=== PATIENT | male | born 1990 | race Caucasian/White ===

== ENCOUNTER 2018-05-11 19:22 | Emergency (ER) | payer BC ==
[~2018-05-11] VITALS: Ht 165.1 cm; Wt 187.7 kg
[2018-05-11 19:24] VITALS: BP 153/71; PULSE 100; RESP 20; Ht 165.1 cm; Wt 187.7 kg
[2018-05-11] MEDS ORDERED: ALBU18HF INHALATION (19:58)
[2018-05-11] MEDS ORDERED: AZIT250T PO (19:58)
[2018-05-11] MEDS ORDERED: BENZ-6 PO (19:58)
--- NOTE | 2018-05-11 22:27 | ERD ---
ER Documentation Chief Complaint Chief Complaint COUGH HPI 28-year-old male patient with a past medical history of hypertension presents to the ED complaining of cough that started 1 week ago. Reports that he has some nasal congestion. Reports that he is tried txnn-ekl-[id number] medication, NyQuil, Mucinex without any relief of his symptoms. Denies any fever, chills, nausea, vomiting, diarrhea, neck stiffness, chest pain, shortness of breath, wheezing. ROS All systems reviewed and are negative except as per history of present illness. Medications Home Meds Active Scripts Albuterol Sulfate* (Ventolin HFA*) 18 Gm Hfa.aer.ad, 2 PUFF INHALATION Q4H, #1 INHALER Prov:LALA EDMONDSON PA-C 05/11/18 Azithromycin* (Zithromax*) 250 Mg Tablet, 250 MG PO .ZPACK DIRECTED, #6 TAB TAKE 500 MG (2 TABS) THE FIRST DAY THEN 250 MG (1 TAB) DAYS 2-5 Prov:LALA EDMONDSON PA-C 05/11/18 Benzonatate* (Tessalon Perle*) 100 Mg Capsule, 100 MG PO Q8H PRN for COUGH, #20 CAP Prov:LALA EDMONDSON PA-C 05/11/18 Allergies Allergies: Coded Allergies: No Known Allergy (Unverified , 05/11/18) PMhx/Soc Medical and Surgical Hx: pt denies Medical Hx, pt denies Surgical Hx Hx Alcohol Use: No Hx Substance Use: No Hx Tobacco Use: No Smoking Status: Never smoker FmHx Family History: diabetes (Father); No coronary disease Physical Exam Vitals Vital Signs Date Temp Pulse Resp B/P (MAP) Pulse Ox O2 O2 Flow FiO2 Time Delivery Rate 05/11/18 99.4 100 20 153/71 96 19:24 (98) Physical Exam Const: Nga-caa-bsjwjnjfl, well-nourished. In no acute distress. Head: Atraumatic, normocephalic Eyes: Normal Conjunctiva without injection. No purulent discharge. PERRL. EOMI ENT: Normal external ear. Ear canal without erythema. Tympanic membrane pearly bruce without effusion or bulging. Nasal canal clear with normal turbinates. Moist oropharynx without tonsillar exudates. Non-erythematous pharynx. Uvula m idline. No drooling. No trismus. Neck: Full range of motion. No meningismus. No cervical lymphadenopathy. Resp: Clear to auscultation bilaterally. No wheezing, rhonchi, rales, or crackles. No accessory muscle use. No retractions. Cardio: Regular rate and rhythm. No murmurs, rubs or gallops. Abd: Soft, non tender, non distended. Normal bowel sounds. No palpable masses. No rebound tenderness. No guarding. Skin: No petechiae or rashes Back: No midline tenderness. No CVA tenderness. Ext: No cyanosis, or edema. Neur: Awake and alert. Psych: Normal Mood and Affect Procedures/MDM 28-year-old male patient with a past medical history of hypertension presents the ED complaining of cough, nasal congestion. Patient reports is a productive cough. Patient is afebrile and nontoxic-appearing. Patient's blood pressure is 153/71. Blood Pressure Assessment: Patient's blood pressure was elevated (>120/80) but appears stable without evidence of hypertension emergency or urgency. The patient was counseled about the risks of hypertension and urged to pursue outpatient monitoring and therapy within a week with their primary care physician. This patient presents to the ED with symptoms consistent with bronchitis, patient will be covered with bacterial etiology with outpatient antibiotics. Patient is afebrile and has normal vital signs. Patient's physical exam include lungs which were clear to auscultation and a normal pulse oximetry. There is a low suspicion for a croup, pneumonia, pneumothorax, strep pharyngitis, otitis media, otitis externa, sinusitis, peritonsillar abscess, foreign body aspiration, mastoiditis, retropharyngeal abscess, epiglottitis, meningitis, sepsis or other emergent conditions. Diagnosis: Cough Discharge medications: Ventolin, Zithromax, Tessalon Perles Follow up with primary care physician in 1-2 days. Instructed patient to return to the ED sooner for any worsening symptoms. Patient's questions were answered. Patient is hemodynamically stable. Patient understood and agreed with discharge plan. Patient discharged stable. Disclaimer: Inadvertent spelling and grammatical errors are likely due to EH R/dictation software use and do not reflect on the overall quality of patient care. Also, please note that the electronic time recorded on this note does not necessarily reflect the actual time of the patient encounter. Departure Diagnosis: Primary Impression: Cough Condition: Stable Patient Instructions: Bronchitis, Antiobiotic Treatment (Adult) Referrals: [facility] YOU HAVE RECEIVED A MEDICAL SCREENING EXAM AND THE RESULTS INDICATE THAT YOU DO NOT HAVE A CONDITION THAT REQUIRES URGENT TREATMENT IN THE EMERGENCY DEPARTMENT. FURTHER EVALUATION AND TREATMENT OF YOUR CONDITION CAN WAIT UNTIL YOU ARE SEEN IN YOUR DOCTORS OFFICE WITHIN THE NEXT 1-2 DAYS. IT IS YOUR RESPONSIBILITY TO MAKE AN APPOINTMENT FOR FOLOW-UP CARE. IF YOU HAVE A PRIMARY DOCTOR --you should call your primary doctor and schedule an appointment IF YOU DO NOT HAVE A PRIMARY DOCTOR YOU CAN CALL OUR PHYSICIAN REFERRAL HOTLINE AT IF YOU CAN NOT AFFORD TO SEE A PHYSICIAN YOU CAN CHOSE FROM THE FOLLOWING [facility] [address] [facility]. [facility] [address] [facility]. [facility] [address] [facility] [address] [facility] [address] [facility]. [facility] [address] [facility]. [facility] YOU HAVE RECEIVED A MEDICAL SCREENING EXAM AND THE RESULTS INDICATE THAT YOU DO NOT HAVE A CONDITION THAT REQUIRES URGENT TREATMENT IN THE EMERGENCY DEPARTMENT. FURTHER EVALUATION AND TREATMENT OF YOUR CONDITION CAN WAIT UNTIL YOU ARE SEEN IN YOUR DOCTORS OFFICE WITHIN THE NEXT 1-2 DAYS. IT IS YOUR RESPONSIBILITY TO MAKE AN APPOINTMENT FOR FOLOW-UP CARE. IF YOU HAVE A PRIMARY DOCTOR --you should call your primary doctor and schedule and appointment IF YOU DO NOT HAVE A PRIMARY DOCTOR YOU CAN CALL OUR PHYSICIAN REFERRAL HOTLINE AT . IF YOU CAN NOT AFFORD TO SEE A PHYSICIAN YOU CAN CHOSE FROM THE FOLLOWING [facility] INSTITUTIONS: [facility] [address] [place] [address] [facility] [address] [place] [address] [facility] [address] [place] [address] [facility] URGENT CARE/SPECIALTIES Additional Instructions: Call your primary care doctor TOMORROW for an appointment during the next 2-3 days.See the doctor sooner or return here if your condition worsens before your appointment time. LALA EDMONDSON PA-C May 11, 2018 22:27
== END 2018-05-11 20:53 | disposition home or self-care (01) ==
LOC: FTE 19:22
DX: R05 Cough (principal); I10 Essential (primary) hypertension
CPT/HCPCS: 99283